=== PATIENT | male | born 1990 | race Caucasian/White ===

== ENCOUNTER 2021-09-06 22:52 | Emergency (ER) | payer BC ==
[~2021-09-06] VITALS: Ht 180.3 cm; Wt 82.1 kg
--- NOTE | 2021-09-06 22:57 | NUR ---
Placed pt in gown, security searched pt for weapons and contraband.
--- NOTE | 2021-09-06 23:10 | NUR ---
Dr. Williamson at bedside for MSE.
--- NOTE | 2021-09-06 23:15 | NUR ---
Pt refused bloodwork, made aware.
--- NOTE | 2021-09-06 23:21 | NUR ---
Xray at bedside.
--- NOTE | 2021-09-06 23:24 | NUR ---
[employer] officers at bedside.
--- NOTE | 2021-09-06 23:26 | NUR ---
Pt refused CT scan. made aware.
--- NOTE | 2021-09-07 06:26 | NUR ---
Patient discharged to home in stable condition. Written and verbal after care instructions given. Patient verbalizes understanding of instructions. Stressed follow up or return to ER for worsening s/s. Patient out of ER with steady gait, no acute signs of distress, VSS, all belongings taken, IV site discontinued.
[2021-09-07 06:27] VITALS: BP 112/71
== END 2021-09-07 06:28 | disposition home or self-care (01) ==
LOC: EDBD 22:59 → ER 22:59
DX: T40.411A Poisoning by fentanyl or fentanyl analogs, accidental (unintentional), initial encounter (principal); R40.4 Transient alteration of awareness; F11.10 Opioid abuse, uncomplicated; Y92.89 Other specified places as the place of occurrence of the external cause; F17.210 Nicotine dependence, cigarettes, uncomplicated; R94.31 Abnormal electrocardiogram [ECG] [EKG]
CPT/HCPCS: 71045; 93005; A4663